=== PATIENT | female | born 2000 | race Two or more races ===

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

== ENCOUNTER 2024-04-24 21:52 | Emergency (ER) | payer BC, OTHER ==
[~2024-04-24] VITALS: Ht 157.5 cm; Wt 73.6 kg
[~2024-04-24 21:52] MED LIST: BIOT5TAB3 PO
[2024-04-24 23:23] LABS: Basophils # (auto) 0.1 10 ^3/uL (0-0.2); Basophils % (auto) 0.8 % (0.0-2.0); Eosinophils # (auto) 0 10 ^3/uL (0-0.8); Eosinophils % (auto) 0.3 % (0.0-7.0); Hematocrit 39.9 % (36.0-46.0); Hemoglobin 13.8 g/dL (12.2-16.2); Lymphocytes # (auto) 2.7 10 ^3/uL (0.4-5.4); Lymphocytes % (auto) 38.2 % (10.0-50.0); Mean Corpuscular Hemoglobin 29.1 pg (28.0-32.0); Mean Corpuscular Hgb Conc. 34.6 g/dL (32.0-36.0); Mean Corpuscular Volume 84.2 fL (80.0-100.0); Monocytes # (auto) 0.6 10 ^3/uL (0-1.3); Monocytes % (auto) 8.1 % (0.0-12.0); Neutrophils # (auto) 3.7 10 ^3/uL (1.6-8.6); Neutrophils % (auto) 52.6 % (37.0-80.0); Platelet Count (auto) 202 10^3/uL (140-450); Red Blood Cells 4.74 10^6/uL (4.0-5.20); Red Cell Distribution Width 13.6 % (11.8-14.3); White Blood Cell 7.1 10^3/uL (4.4-10.8)
[2024-04-24 23:49] LABS: Urine Bacteria FEW /hpf (None Seen); Urine Blood Negative /uL (Negative); Urine Clarity Clear (Clear); Urine Color Light-Yellow (Yellow); Urine Protein, UAD TRACE (Negative); Urine Specific Gravity 1.032 (1.001-1.035); Urine Urobilinogen Normal (Negative); Urine WBC 1 /hpf (0 - 5)
[2024-04-24 23:50] LABS: Alanine Aminotransferase 48 U/L (7-40); Albumin 4.7 g/dL (3.2-4.8); Alkaline Phosphatase 157 U/L (46-116); Anion Gap 8 (5-15); Aspartate Aminotransferase 34 U/L (13-40); BUN/Creatinine Ratio 13.1 (10.0-20.0); Bilirubin, Total 0.3 mg/dL (0.2-1.0); Blood Urea Nitrogen 11 mg/dL (9-23); Calcium 9.6 mg/dL (8.7-10.4); Carbon Dioxide 26 mmol/L (20-31); Chloride 105 mmol/L (98-107); Glucose 92 mg/dL (74-106); Potassium 3.6 mmol/L (3.5-5.1); Sodium 139 mmol/L (136-145)
[2024-04-24 23:51] LABS: Total Protein 7.2 g/dL (5.7-8.2)
[2024-04-25] MEDS: IOHEXOL 300 MG/ML 100ML BOTTLE IJ ONE (01:16)
[2024-04-25 01:33] VITALS: BP 110/69; PULSE 71; RESP 20; TEMP 97.9; O2SAT 99
[2024-04-25] MEDS: SODIUM CHLORIDE 0.9% 1,000 ML IV ONE (02:44)
[2024-04-25] MEDS: KETOROLAC TROMETH 30 MG/ML 1ML VIAL IV ONE (02:59)
[2024-04-25] MEDS: ONDANSETRON HCL 4 MG/2 ML VIAL IV ONE (02:59)
== END 2024-04-25 04:48 | disposition home or self-care (01) ==
LOC: ER 21:52
DX: K52.9 Noninfective gastroenteritis and colitis, unspecified (principal); Z90.49 Acquired absence of other specified parts of digestive tract; Z79.899 Other long term (current) drug therapy
CPT/HCPCS: 36415; 74177; 80053; 81001; 81025; 85025; 96361; 96374; 96375; 99285; J1885; J2405; J7030; Q9967